=== PATIENT | male | born 1995 | race Caucasian/White ===

== ENCOUNTER 2019-02-03 05:22 | Day surgery (SDC) | payer OTHER ==
[~2019-02-03] VITALS: Ht 185.4 cm; Wt 85.3 kg
[~2019-02-03 05:22] MED LIST: TRAMADOL 50 MG50 MG PO
[2019-02-03 09:49] VITALS: BP 126/56
[2019-02-03 15:48] VITALS: BP 126/56
--- NOTE | 2019-02-03 23:34 | O ---
[facility] [place] [address] OPERATIVE REPORT Name: JANEE ARANDA Room #: DEP [facility]..#: [id number] Admission: 02/03/19 ������������������ Attend Phys: Donnie Cancino MD Discharge: 02/03/19 ������������������ Date of : [birth year] Report #: [id number] THIS REPORT FOR: //name// CC: Donnie Cancino [facility] physician/PCP DATE OF SERVICE: 02/03/2019 PREOPERATIVE DIAGNOSIS: Herniated lumbar disk, L4-L5, right. POSTOPERATIVE DIAGNOSIS: Herniated lumbar disk, L4-L5, right. PROCEDURE: Decompressive laminectomy and diskectomy, L4-L5, right. SURGEON: Donnie Cancino M.D. 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 He complains of progressive radiating right leg pain with some associated numbness and weakness as well as moderate low back pain. Clinical exam and MRI study confirm a lumbar disk herniation at L4-L5, extending toward the right side, consistent with his symptoms. He has tried conservative measures for some time, without clear benefit. His leg pain and subtle weakness has worsened. He has elected to go ahead with surgical laminectomy and diskectomy. DESCRIPTION OF PROCEDURE: The patient was taken to the operating room, where he was placed under general anesthesia. Prophylactic intravenous antibiotics were administered. He was turned to the prone position. The low back was meticulously prepped and draped. C-arm was used to localize the appropriate level. A skin incision was made overlying the L4-L5 interspace, extending toward the right side. This was carried through fascia and muscle exposing the lamina. A small laminotomy was created at the inferior aspect of L5. A probe was placed in the canal and C-arm views were taken. This confirmed that I was at the appropriate level. However, the upper aspect of the lamina was well above the disk space, making visualization of the disk somewhat difficult. The laminotomy was extended through most of the lamina of L5 and a small amount of the L4 lamina. This was extended out laterally undercutting the facet slightly and extended toward the midline. This allowed good visualization of the dura and nerve root. The nerve root was retracted toward the midline, exposing the dura. There was some difficulty as he had rather large epidural veins, which caused some oozing throughout the procedure. These were packed off with small cottonoids, creating a good dry field with good visualization. The disk was found to be quite prominent, but had not completely herniated through the posterior longitudinal ligament. There were no extruded loose fragments. The disk was however quite prominent and bulging, causing significant canal and nerve root impingement. A small probe was placed in the disk and another C-arm [facility] [address] [place] [address] OPERATIVE REPORT Name: OSEASBHAVNAJANEE Room #: DEP [facility] M.R.#: [id number] Admission: 02/03/19 ������������������ Attend Phys: Donnie Cancino MD Discharge: 02/03/19 ������������������ Date of : [birth year] Report #: [id number] view was taken, confirming that I was at the appropriate L4-L5 level. The disk was then opened and a moderate amount of loose degenerative disk debris bolds forth. This was removed with pituitary rongeurs. A good deal of additional degenerative disk debris was removed from the disk space. This resulted in significant improvement in the disk bulging. This resulted in significant improvement in the canal compromise. The nerve root seemed to be freed up nicely. Once a thorough decompression had been completed, the wound was gently packed with cottonoids soaked in thrombin to establish good hemostasis. I did not feel that use of bipolar cautery in the epidural veins was advisable as there were large veins and I was concerned that might cause more bleeding or potentially cause more scarring or injury to the nerve root. Instead, the area was gently packed with cottonoids and then Gelfoam until good hemostasis was confirmed. The wound was copiously irrigated. No further bleeding was identified. The exposed dura was covered with a very small sheet of Gelfoam soaked in thrombin. The fascia and muscle layer were then closed with multiple #1 Vicryl sutures. The subcutaneous tissues were closed with 2-0 Monocryl. The skin was closed with 2-0 Prolene. Steri-Strips and a light dressing were applied. The patient was awakened and returned to the recovery room in good condition. ��������������������������������������������� <ELECTRONICALLY SIGNED> ���������������������������������������� By: Donnie Cancino MD ��������������������������������������������� 02/03/19 [id number] Donnie Cancino MD /nt
--- NOTE | 2019-02-05 12:06 | PATH ---
[facility] [address] [place] [address] PATHOLOGY RPT PROCEDURE Name: JANEE ARANDA Room #: DEP [facility] M.R.#: [id number] ������������������ Admission: 02/03/19 ������������������ Date of : [birth year] Discharge: 02/03/19 Report #: [id number] Path Case #: [id number] [facility] Accession Number: [id number] . 01 Material submitted: . back - LUMBAR DISC . 01 Clinical history: . Disc displacement . 02 Diagnosis: Lumbar disc, diskectomy: - Fragments of nucleus pulposus with reactive changes, history of disc displacement. (IUV:zena; 02/04/2019) QMS/02/04/2019 . 02 Electronically signed: . Karis Masters MD, Pathologist NPI- [id number] . 01 Gross description: . Received in formalin labeled "Juhnke, Janee, lumbar disc," is a 4.6 x 4.2 x 0.7 cm aggregate of pink-conte soft tissue fragments admixed with scant possible bone/cartilage. The specimen is submitted representatively in cassette A1, following light decalcification. (DAC; 02/03/2019) XDC/XDC . 02 Pathologist provided ICD-10: M51.26 . 02 CPT . 896128, [id number] Specimen Comment: A courtesy copy of this report has been sent to Specimen Comment: [phone]. Specimen Comment: Report sent to Performed at: [address], [place] [id number] MD Narendra Crawford MD Phone: [phone] Performed at: [address] [id number] MD Karis Masters MD Phone: [phone]
== END 2019-02-03 16:04 | disposition home or self-care (01) ==
LOC: OR 05:22 → TBA 05:22 → OR 08:32
DX: M51.16 Intervertebral disc disorders with radiculopathy, lumbar region (principal); Z79.899 Other long term (current) drug therapy
CPT/HCPCS: 50010; 50101; 50402; 50704; 50850; 56525; 62110; 62900; 70005